=== PATIENT | male | born 1945 | race Caucasian/White ===

== ENCOUNTER 2020-09-19 06:57 | Emergency (ER) | payer MEDICARE ==
[~2020-09-19] VITALS: Ht 177.8 cm; Wt 89.8 kg
[~2020-09-19 06:57] MED LIST: AUGMENTIN 875-1 EACH PO; LEVOTHYROXINE75 MCG PO; METFORMIN HCL500 M1; METOPROLOL SUCC25 MG
== END 2020-09-19 09:00 | disposition home or self-care (01) ==
LOC: ED 06:57
PROC: 093K7ZZ Control Bleeding in Nasal Mucosa and Soft Tissue, Via Natural or Artificial Opening (ICD-10-PCS; principal; 2020-09-19)
DX: R04.0 Epistaxis (principal); I10 Essential (primary) hypertension; Z79.82 Long term (current) use of aspirin; Z79.84 Long term (current) use of oral hypoglycemic drugs; Z79.899 Other long term (current) drug therapy
CPT/HCPCS: 30901; 85025; 99283-25

== ENCOUNTER 2023-05-12 11:56 | Emergency (ER) | payer MEDICARE ==
[~2023-05-12] VITALS: Ht 177.8 cm; Wt 88.4 kg
[~2023-05-12 11:56] MED LIST changes: +AMIODARONE HCL200 MG PO; +ASPIRIN81 MG PO; +ATORVASTATIN CA40 MG PO; +XARELTO20 MG PO
[2023-05-12 15:56] VITALS: BP 132/77
== END 2023-05-12 15:56 | disposition home or self-care (01) ==
LOC: ED 11:56
DX: S70.11XA Contusion of right thigh, initial encounter (principal); I10 Essential (primary) hypertension; I25.10 Atherosclerotic heart disease of native coronary artery without angina pectoris; X58.XXXA Exposure to other specified factors, initial encounter; Z95.1 Presence of aortocoronary bypass graft; Z79.02 Long term (current) use of antithrombotics/antiplatelets; Z79.890 Hormone replacement therapy; Z79.82 Long term (current) use of aspirin; Z79.899 Other long term (current) drug therapy
CPT/HCPCS: 93971; 99283-25

== ENCOUNTER 2024-05-18 18:39 | Emergency (ER) | payer MEDICARE ==
[~2024-05-18] VITALS: Ht 177.8 cm; Wt 90.9 kg
[2024-05-18] MEDS ORDERED: LEVOTHYROXINE88 MCG PO (18:52)
[2024-05-18 19:35] VITALS: BP 149/81
== END 2024-05-18 19:33 | disposition home or self-care (01) ==
LOC: ED 18:39
DX: S50.02XA Contusion of left elbow, initial encounter (principal); I48.20 Chronic atrial fibrillation, unspecified; R73.03 Prediabetes; I10 Essential (primary) hypertension; I25.10 Atherosclerotic heart disease of native coronary artery without angina pectoris; Z95.1 Presence of aortocoronary bypass graft; Z79.01 Long term (current) use of anticoagulants; Z79.890 Hormone replacement therapy; Z79.84 Long term (current) use of oral hypoglycemic drugs; Z79.82 Long term (current) use of aspirin; Z79.899 Other long term (current) drug therapy; W22.8XXA Striking against or struck by other objects, initial encounter
CPT/HCPCS: 99283

== ENCOUNTER 2024-05-26 09:10 | Emergency (ER) | payer MEDICARE ==
[~2024-05-26] VITALS: Ht 177.8 cm; Wt 90.9 kg
[~2024-05-26 09:10] MED LIST changes: +LEVOTHYROXINE88 MCG PO
--- OUTSIDE RECORDS SUMMARY | 2024-05-26 09:17 | XMS ---
PreManage Notification: DIANE ANNA Security Business Reporter Events No recent Security Events currently on file CRITERIA MET - [facility] - 2 Visits in 30 Days CARE PROVIDERS There are no care providers on record at this time. Casper has no Care Guidelines for this patient. Mariah VISIT COUNT (12 MO.) [facility] T[facility] 2 NOTE: Visits indicate total known visits. ED/C VISIT TRACKING (12 MO.) 05/[facility]2024 09:11 [facility] [place] [facility] COMPLAINT: - WOUND CHECK 05/18/2024 18:[address] [facility] [place] TYPE: Emergency COMPLAINT: - ARM SWELLING DIAGNOSES: - Atherosclerotic heart disease of [place] coronary artery without angina pectoris - Chronic atrial fibrillation, unspecified - Contusion of left elbow, initial encounter - Essential (primary) hypertension - Hormone replacement therapy - penitentiary (current) use of anticoagulants - penitentiary (current) use of aspirin - termite control technician (current) use of oral hypoglycemic drugs - Other fpc (current) drug therapy - Other specified soft tissue disorders - Prediabetes - Presence of aortocoronary bypass graft - Striking against or struck by other objects, initial encounter INPATIENT VISIT TRACKING (12 MO.) No inpatient visits to display in this time frame [email or web address]
[2024-05-26] MEDS ORDERED: clindamycin HCL 300 MG CAP PO ONE (11:00)
[2024-05-26] MEDS ORDERED: TRIMETHOPRIM/SULFAMETHOXAZOLE 1 EA TAB PO ONE (11:00)
[2024-05-26] MEDS ORDERED: BACTRIM DS TAB1 EACH PO (12:10)
[2024-05-26] MEDS ORDERED: CLINDAMYCIN HC150 MG PO (12:10)
[2024-05-26 12:31] VITALS: BP 162/90
== END 2024-05-26 12:27 | disposition home or self-care (01) ==
LOC: ED 09:10
DX: L03.114 Cellulitis of left upper limb (principal); I25.10 Atherosclerotic heart disease of native coronary artery without angina pectoris; Z95.1 Presence of aortocoronary bypass graft; Z79.02 Long term (current) use of antithrombotics/antiplatelets; Z79.890 Hormone replacement therapy; Z79.84 Long term (current) use of oral hypoglycemic drugs; Z79.899 Other long term (current) drug therapy; Z79.82 Long term (current) use of aspirin
CPT/HCPCS: 10060; 99283; A9270

== ENCOUNTER 2024-06-23 09:20 | Emergency (ER) | payer MEDICARE ==
[~2024-06-23] VITALS: Ht 177.8 cm; Wt 88.7 kg
[~2024-06-23 09:20] MED LIST changes: +BACTRIM DS TAB1 EACH PO; +CLINDAMYCIN HC150 MG PO
--- OUTSIDE RECORDS SUMMARY | 2024-06-23 09:22 | XMS ---
PreManage Notification: DIANE ANNA Security City Detective Events No recent Security Events currently on file CRITERIA MET - [facility] - 2 Visits in 30 Days CARE PROVIDERS There are no care providers on record at this time. Casper has no Care Guidelines for this patient. Mariah [facility] (12 MO.) [facility] T[facility] 3 NOTE: Visits indicate total known visits. ED/C VISIT TRACKING (12 MO.) 06/23/2024 09:20 [facility] [place] [facility] COMPLAINT: - WOUND CHECK 05/26/2024 09:11 [facility] [place] TYPE: Emergency COMPLAINT: - WOUND CHECK DIAGNOSES: - Atherosclerotic heart disease of [place] coronary artery without angina pectoris - Atherosclerotic heart disease of [place] coronary artery without angina pectoris - Cellulitis of left upper limb - Cellulitis of left upper limb - Hormone replacement therapy - Hormone replacement therapy - Localized swelling, mass and lump, left upper limb - Localized swelling, mass and lump, left upper limb - intermediate project manager (current) use of antithrombotics/antiplatelets - skilled nursing (current) use of antithrombotics/antiplatelets - skilled nursing (current) use of aspirin - skilled nursing (current) use of aspirin - intermediate project manager (current) use of oral hypoglycemic drugs - intermediate project manager (current) use of oral hypoglycemic drugs - Other supervisor intermediates (current) drug therapy - Other alf (current) drug therapy - Pain in left elbow - Presence of aortocoronary bypass graft - Presence of aortocoronary bypass graft 05/18/2024 18:39 [facility] [place] TYPE: Emergency COMPLAINT: - ARM SWELLING DIAGNOSES: - Atherosclerotic heart disease of [place] coronary artery without angina pectoris - Chronic atrial fibrillation, unspecified - Contusion of left elbow, initial encounter - Essential (primary) hypertension - Hormone replacement therapy - skilled nursing (current) use of anticoagulants - skilled nursing (current) use of aspirin - intermediate project manager (current) use of oral hypoglycemic drugs - Other supervisor intermediates (current) drug therapy - Other specified soft tissue disorders - Prediabetes - Presence of aortocoronary bypass graft - Striking against or struck by other objects, initial encounter INPATIENT VISIT TRACKING (12 MO.) No inpatient visits to display in this time frame [email or web address]
[2024-06-23] MEDS ORDERED: BACTRIM DS TAB1 EACH PO (10:22)
[2024-06-23 10:28] VITALS: BP 145/100
== END 2024-06-23 10:30 | disposition home or self-care (01) ==
LOC: ED 09:20
DX: L02.414 Cutaneous abscess of left upper limb (principal); I25.10 Atherosclerotic heart disease of native coronary artery without angina pectoris; Z95.1 Presence of aortocoronary bypass graft; Z79.02 Long term (current) use of antithrombotics/antiplatelets; Z79.82 Long term (current) use of aspirin; Z79.84 Long term (current) use of oral hypoglycemic drugs; Z79.890 Hormone replacement therapy; Z79.899 Other long term (current) drug therapy
CPT/HCPCS: 10060; 99283-25

== ENCOUNTER 2025-06-04 06:50 | Day surgery (SDC) | payer MEDICARE ==
[~2025-06-04] VITALS: Ht 177.8 cm; Wt 89.0 kg
[~2025-06-04 06:50] MED LIST changes: +LACTATED RINGER'S 1,000 ML IV SCH
[2025-06-04] MEDS ORDERED: LIDOCAINE HCL 1% 5 ML SDV INJ ONE (07:00)
[2025-06-04] MEDS ORDERED: IBLOOD GLUCOSE TEST STRIP 1 EA TEST VI PRN (07:00)
[2025-06-04] MEDS ORDERED: VITAMIN C 500500 M1 PO (07:16)
[2025-06-04] MEDS ORDERED: IRON18 M1 PO (07:16)
[2025-06-04] MEDS ORDERED: DAILY VALUE1 EACH PO (07:17)
[2025-06-04 07:18] VITALS: BP 171/73
[2025-06-04] MEDS ORDERED: LIDOCAINE HCL 2% 5 ML SDV ONE (08:26)
--- NOTE | 2025-06-04 08:45 | NUR ---
06/04/25 0845 Marta Keyes 0838-PATIENT ARRIVED TO PACU ON 4L NC RR EVEN PATIENT REACTIVE TO VERBAL STIMULI WHEN RN SAYS NAME REPORTS "YEP" EYES CLOSED. SINUS BRADYCARDIA HR 50'S IVF INFUSING. ABDOMEN SOFT. 0845-PATIENT SLEEPING 4L NC RR EVEN PER DR. RODRIGUEZ PATIENT TO RESUME XARELTO IN 5 DAYS.
[2025-06-04 09:14] VITALS: BP 140/76
--- NOTE | 2025-06-05 08:52 | OR ---
[facility] [address] [place], [place] [address] Signed DATE OF OPERATION: 06/04/2025 SURGEON: Ry Thomson DO PREOPERATIVE DIAGNOSES: Unexplained anemia. POSTOPERATIVE DIAGNOSES: 1. Unexplained anemia with punctate gastritis. 2. Gastric ulceration. 3. LA grade A esophagitis. PROCEDURE PERFORMED: Esophagogastroduodenoscopy with biopsy of the ulceration and also random gastric biopsy. ANESTHESIA: IV sedation. ESTIMATED BLOOD LOSS: Minimal. DRAINS: None. COMPLICATIONS: None. DESCRIPTION OF PROCEDURE: The patient was brought to the GI lab, placed in the supine position. After induction of IV sedation through preanesthetized oropharynx and a bite block, the Olympus video endoscope was introduced into the mouth directed to the length of esophagus into the distal esophagus. Some mild esophagitis LA grade A was noted, but no ulceration was appreciated. The scope was placed into the stomach. Scattered small gastric erosions appreciated. Biopsies were taken in this area. They were not bleeding and less than approximately 2 to 3 mm in size and not raised. Random gastric biopsy was also taken as well. Scope was brought through the antrum and pylorus into the 1st and 2nd portions of duodenum. No evidence of lesions or ulcerations were noted. Scope was brought back into the stomach, retroflexed on itself. No evidence of hiatal hernia was appreciated. Scope was placed in neutral position. The stomach was decompressed. Scope was withdrawn and Electronically Signed By: RY THOMSON DO 06/05/25 0852 PATIENT NAME: DIANE ANNA JR OPERATIVE REPORT DATE OF : 43 REPORT #: [id number] PHYSICIAN: RY THOMSON DO PCP: RY CASTRO MD REPORT IS CONFIDENTIAL AND NOT TO BE RELEASED WITHOUT AUTHORIZATION [address] [place] [address] Signed he tolerated the procedure well and taken to recovery room in satisfactory condition. Ry Thomson DO RS/MODL /[id number] Copies: ~ Electronically Signed By: RY THOMSON DO 06/05/25 0852 PATIENT NAME: DIANE ANNA OPERATIVE REPORT DATE OF : 43 REPORT #: [id number] PHYSICIAN: RY THOMSON DO PCP: RY CASTRO MD REPORT IS CONFIDENTIAL AND NOT TO BE RELEASED WITHOUT AUTHORIZATION
--- NOTE | 2025-06-08 12:11 | PATH ---
[facility] [address] [facility] [place], [place] [address] Signed SPECIMEN(S): A STOMACH BIOPSY, RANDOM SPECIMEN SOURCE: A. STOMACH BIOPSY, RANDOM CLINICAL HISTORY: Anemia, gastric ulcer, gastritis, LA grade a esophagitis FINAL PATHOLOGIC DIAGNOSIS: Random stomach biopsy: - Benign gastric mucosa - Negative for active acute inflammation, intestinal metaplasia, dysplasia, or Helicobacter organisms by routine HE stain. BB MICROSCOPIC EXAMINATION: Histologic sections of all submitted blocks are examined by light microscopy. These findings, together with the gross examination, support the pathologic diagnosis. GROSS DESCRIPTION: The specimen, labeled and designated "Saúl, random stomach biopsy," is received in formalin and consists of one zapien soft tissue fragment, 0.5 cm. Entirely submitted in (A1). VB (under the direct supervision of a pathologist) The Gross Description was prepared using a voice recognition system. The report was reviewed for accuracy; however, sound-alike word errors, addition and/or deletions may occur. If there is any question about this report, please contact Client Services. ADDITIONAL NOTES: Immunohistochemical and/or in situ hybridization studies if performed in this case included appropriate positive controls that reacted as expected. This test was developed and its performance characteristics determined by [facility]. It has not been cleared or approved by the U.S. Food and Drug Administration. The FDA has determined that such clearance or approval is not necessary. This test is used for clinical purposes. It should not be regarded as investigational or for research. [facility] is certified under the Clinical Laboratory Improvement Amendments of 1988 (CLIA) as qualified to perform high complexity clinical PATIENT NAME: DIANE ANNA JR PATHOLOGY DATE OF : 43 REPORT #: [id number] PHYSICIAN: KI GILMORE PCP: RY CASTRO MD REPORT IS CONFIDENTIAL AND NOT TO BE RELEASED WITHOUT AUTHORIZATION [facility] [address] [place], [place] [address] Signed laboratory testing. PERFORMING LABORATORY: Technical component was performed by [facility], [address] [place] [address] (CLIA# [id number]). Professional interpretation was performed by [facility] [place] [address] (CLIA#: [id number]). Diagnostician: Jimy Goins MD Pathologist Electronically Signed 06/08/2025 Copies: ~ PATIENT NAME: DIANE ANNA JR PATHOLOGY DATE OF : 43 REPORT #: [id number] PHYSICIAN: KI GILMORE PCP: RY CASTRO MD REPORT IS CONFIDENTIAL AND NOT TO BE RELEASED WITHOUT AUTHORIZATION
== END 2025-06-04 09:20 | disposition home or self-care (01) ==
LOC: DS 06:50
PROVIDERS: ATTEND Surgery
PROC: 0DB68ZX Excision of Stomach, Via Natural or Artificial Opening Endoscopic, Diagnostic (ICD-10-PCS; principal; 2025-06-04 08:05)
DX: D50.9 Iron deficiency anemia, unspecified (principal); K29.70 Gastritis, unspecified, without bleeding; K25.9 Gastric ulcer, unspecified as acute or chronic, without hemorrhage or perforation; K20.90 Esophagitis, unspecified without bleeding; E11.9 Type 2 diabetes mellitus without complications; I10 Essential (primary) hypertension; E03.9 Hypothyroidism, unspecified; Z79.84 Long term (current) use of oral hypoglycemic drugs; Z79.01 Long term (current) use of anticoagulants; Z79.890 Hormone replacement therapy; Z79.899 Other long term (current) drug therapy; Z88.7 Allergy status to serum and vaccine; Z86.73 Personal history of transient ischemic attack (TIA), and cerebral infarction without residual deficits
CPT/HCPCS: 00731; 88305; J2003; J2704; J7121

== ENCOUNTER 2025-08-11 08:48 | Day surgery (SDC) | payer MEDICARE ==
[~2025-08-11] VITALS: Ht 177.8 cm; Wt 89.0 kg
[~2025-08-11 08:48] MED LIST changes: +DAILY VALUE1 EACH PO; +HEParin SOD (PORCINE) 5,000 UNIT/ML SDV SUB-Q SCH; +IBLOOD GLUCOSE TEST STRIP 1 EA TEST VI PRN; +IRON18 M1 PO; +LIDOCAINE HCL 1% 5 ML SDV INJ ONE; +VITAMIN C 500500 M1 PO
[2025-08-11 08:57] VITALS: BP 180/86
[2025-08-11] MEDS ORDERED: LIDOCAINE HCL 2% 5 ML SDV ONE (12:38)
[2025-08-11] MEDS ORDERED: GLYCOPYRROLATE 1 MG/5 ML MDV ONE (12:56)
[2025-08-11] MEDS ORDERED: SEVOFLURANE 250 ML BTL ONE (13:09)
--- NOTE | 2025-08-11 14:06 | NUR ---
08/11/25 1406 Sheets,Olesya 1312 PT ARRIVED TO PACU ON 6L VIA MASK, PT ASLEEP AND RESP EVEN AND UNLABORED. 1322 MD AT BEDSIDE AND PT WOKE TO TACTILE STIMULI. PLAN OF CARE DISCUSSED AND PT DENIES CONCERNS. 1335 HOB INCREASED AND PT SIPPING WATER. PT ENCOURAGED TO PASS GAS NEEDED. 1357 PT DRESSED HIMSELF AND DC INSTRUCTIONS GIVEN. ALL QUESTIONS ANSWERED. VSS. RIDE UPDATED. PT DC WITH ALL DC PAPERWORK.
[2025-08-11 14:30] VITALS: BP 160/85
== END 2025-08-11 13:57 | disposition home or self-care (01) ==
LOC: DS 08:48
PROVIDERS: ATTEND Surgery
PROC: 0DJD8ZZ Inspection of Lower Intestinal Tract, Via Natural or Artificial Opening Endoscopic (ICD-10-PCS; principal; 2025-08-11 10:45)
DX: K64.8 Other hemorrhoids (principal); D50.0 Iron deficiency anemia secondary to blood loss (chronic); E11.9 Type 2 diabetes mellitus without complications; I10 Essential (primary) hypertension; E03.9 Hypothyroidism, unspecified; Z88.7 Allergy status to serum and vaccine; Z88.8 Allergy status to other drugs, medicaments and biological substances
CPT/HCPCS: 00811; J2003; J2704; J7121